=== PATIENT | male | born 1980 ===

== ENCOUNTER 2021-05-22 18:28 | Emergency (ER) | payer SELFPAY ==
[2021-05-22] MEDS ORDERED: Ketorolac 60 MG/2 ML SDV IM ONE (19:43)
--- NOTE | 2021-05-22 19:47 | EDM.PDOC ---
ED HPI GENERAL MEDICAL PROBLEM - General Chief Complaint: Back Pain or Injury Stated Complaint: RT SIDE RIBS Time Seen by Provider: 05/22/21 19:37 Source of Information: Reports: Patient History Limitations: Reports: No Limitations - History of Present Illness INITIAL COMMENTS - FREE TEXT/NARRATIVE: HISTORY AND PHYSICAL: History of present illness: Patient is a 40-year-old male who presents to the emergency department with complaints of left lateral chest wall pain which started yesterday. The patient states that on Wednesday he was wrestling with his friend when he hurt his ribs. He stated that they were feeling better until yesterday when he was twisted to the right side and sneezed, at that time he felt a pop and has had pain since then. He states the pain is getting worse to where he cannot take a deep breath. He took Motrin about 3 hours ago which did help the pain. Patient denies any fever, chills, headache, change in vision, syncope or near syncope. Denies any cough. Denies any abdominal pain, nausea, vomiting, diarrhea, constipation or dysuria. Has not noted any blood in urine or stool. Patient has been eating and drinking appropriately. Review of systems: As per history of present illness and below otherwise all systems reviewed and negative. Past medical history: As per history of present illness and as reviewed below otherwise noncontribu tory. Surgical history: As per history of present illness and as reviewed below otherwise noncontributory. Social history: See social history for further information Family history: As per history of present illness and as reviewed below otherwise noncontributory. Physical exam: General: Well developed and well nourished. Alert and orientated x 3. Nontoxic in appearance and in no acute distress. Vital signs are stable and have been reviewed by me. Nursing notes were reviewed. HEENT: Atraumatic, normocephalic, pupils equal and reactive bilaterally, negative for conjunctival pallor or scleral icterus, mucous membranes moist, TMs normal bilaterally, throat clear, neck supple, nontender, trachea midline. No drooling or trismus noted. No meningeal signs. No hot potato voice noted. Lungs: Clear to auscultation bilaterally. No wheezes, rales, or rhonchi. Chest nontender. Normal work of breathing, no accessory muscles used. Heart: S1S2, regular rate and rhythm without overt murmur, gallops, or rubs. No JVD. No peripheral edema Abdomen: Soft, nondistended, nontender. Normoactive bowel sounds. Negative for masses or costovertebral tenderness. Skin: Intact, warm, dry. No lesions or rashes noted. Hematologic: No petechiae or purpra. Mucosa appropriate color and normal nail bed color and refill. Extremities: Atraumatic, moves all extremities per self without difficulty or deficits, negative for cords or calf pain. Neurovascular unremarkable. Neuro: Awake, alert, oriented. Cranial nerves II through XII unremarkable. Cerebellum unremarkable. Motor and sensory unremarkable throughout. Exam nonfocal. Psychiatric: Mood and affect are appropriate. Normal thought process. Answering questions appropriately. Notes: *This patient was seen and evaluated during the 2019 SARS-CoV-2 novel coronavirus pandemic period. Community viral transmission is ongoing at time of this encounter and the emergency department is operating under pandemic response procedures. As stated above the patient is a 40-year-old male here for complaints of right lateral chest wall pain which started yesterday. The patient stated that Wednesday he injured his ribs in a wrestling match with his friend. He stated they were starting to feel better by yesterday when he turned towards his left and sneezed. At that time he heard a pop and started having some right lateral chest wall pain. The pain is increased with a deep breath to the point that he does not feel like he can take a deep breath. We will treat his pain with Toradol 60 mg IM and obtain a chest x-ray. Chest x-ray IMPRESSION: No sign of acute disease. Given the patient Norflex 60 mg IM. I have talked to the patient about the pain being muscular in nature. I have told the patient that he can continue with Motrin 600 mg every 6-8 hours and oral Norflex 100 mg p.o. twice a day for 5 days. If he continues to have pain after that he can follow- up with his primary care provider. The patient is agreeable with the plan I have talked with the patient about today's findings, in addition to providing specific details for plan of care. Reassessment at the time of disposition demonstrates that the patient is in no acute distress. The patient is stable for discharge, counseling was provided and we discussed in great detail signs and symptoms that would prompt them to return to the Emergency Department. Medication, follow up and supportive care measures were reviewed and discussed. Voices understanding and is agreeable to plan of care. Denies any further questions or concerns at this time. Diagnostics:CXR [employer]: Toradol 60 mg IM, Norflex 60 mg IM Prescription: Norflex 100 mg p.o. twice daily for 5 days Impression: Chest wall pain Plan: 1. You were evaluated today on an emergent basis. Your complaints of left-sided rib pain were evaluated with a chest x-ray which was negative for any acute changes. I will give you a shot of Norflex 60 mg, which is a muscle relaxer to assist with your pain control. I gave you Toradol 60 mg injection to assist with pain control. At home you can take Motrin 600mg 6 to 8 hours from the Toradol injection. Prescribed Norflex 100 mg p.o. twice a day for 5 days. It might take a couple days for the Norflex to work but it should take care of the pain. If not please return to the emergency department or follow-up with your primary care. 2. You can alternate Tylenol and ibuprofen as needed for pain and fever management. 3. We encourage you to follow up with your primary care provider and/or recommended specialist in the next few days for re-evaluation and further care/management. 4. If your symptoms should worsen, new symptoms develop or any of the signs and symptoms we discussed should arise please return to the emergency room or call 911 (if needed). Definitive disposition and diagnosis as appropriate pending reevaluation and review of above. Right Trunk Pain Score (Numeric/FACES): 7 - Related Data Allergies Allergy/AdvReac Type Severity Reaction Status Date / Time No Known Allergies Allergy Verified 05/22/21 19:30 Home Meds: Home Meds Orphenadrine [Norflex] 100 mg PO BID PRN 5 Days #10 tab 05/22/21 [Rx] Past Medical History HEENT History: Reports: None Cardiovascular History: Reports: Hypertension Respiratory History: Reports: None Gastrointestinal History: Reports: None Genitourinary History: Reports: None Musculoskeletal History: Reports: None Neurological History: Reports: None Psychiatric History: Reports: None Endocrine/Metabolic History: Reports: None Immunologic History: Reports: None Oncologic (Cancer) History: Reports: None Dermatologic History: Reports: None - Infectious Disease History Infectious Disease History: Reports: Chicken Pox - Past Surgical History Head Surgeries/Procedures: Reports: None Social & Family History - Family History Family Medical History: No Pertinent Family History - Caffeine Use Caffeine Use: Reports: Coffee - Recreational Drug Use Recreational Drug Type: Reports: Marijuana/Hashish ED ROS GENERAL - Review of Systems Review Of Systems: Comprehensive ROS is negative, except as noted in HPI. ED EXAM, GENERAL - Physical Exam Exam: See Below (See dictation) Course - Vital Signs Last Recorded V/S: Last Vital Signs Temp 97.2 F 05/22/21 19:30 Pulse 72 05/22/21 20:45 Resp 16 05/22/21 20:45 BP 127/90 05/22/21 20:45 Pulse Ox 96 05/22/21 20:45 - Orders/Labs/Meds Meds: Medications Discontinued Medications Generic Name Dose Route Start Last Admin Trade Name Freq PRN Reason Stop Dose Admin Ketorolac Tromethamine 60 mg 05/22/21 19:43 05/22/21 20:06 Ketorolac 60 Mg/2 Ml Sdv IM 05/22/21 19:44 60 mg ONETIME ONE Administration Orphenadrine Citrate 60 mg 05/22/21 20:24 05/22/21 20:31 Orphenadrine 60 Mg/2 Ml Inj IM 05/22/21 20:25 60 mg ONETIME ONE Administration Departure - Departure Time of Disposition: 20:25 Disposition: Home, Self-Care 01 Condition: Good Clinical Impression: Chest wall pain - Discharge Information *PRESCRIPTION DRUG MONITORING PROGRAM REVIEWED*: Not Applicable *COPY OF PRESCRIPTION DRUG MONITORING REPORT IN PATIENT PACO: Not Applicable Prescriptions: Orphenadrine [Norflex] 100 mg PO BID PRN 5 Days #10 tab PRN Reason: Muscle Spasm - Painful Instructions: Muscle Strain, [id number] Referrals: Kandy Hines PA [Primary Care Provider] - Forms: ED Department Discharge Additional Instructions: The following information is given to patients seen in the emergency department who are being discharged to home. This information is to outline your options for follow-up care. We provide all patients seen in our emergency department with a follow-up referral. The need for follow-up, as well as the timing and circumstances, are variable depending upon the specifics of your emergency department visit. If you don't have a primary care physician on staff, we will provide you with a referral. We always advise you to contact your personal physician following an emergency department visit to inform them of the circumstance of the visit and for follow-up with them and/or the need for any referrals to a consulting specialist. The emergency department will also refer you to a specialist when appropriate. This referral assures that you have the opportunity for follow-up care with a specialist. All of these measure are taken in an effort to provide you with optimal care, which includes your follow-up. Under all circumstances we always encourage you to contact your private physician who remains a resource for coordinating your care. When calling for follow-up care, please make the office aware that this follow-up is from your recent emergency room visit. If for any reason you are refused follow-up, please contact the [facility] Emergency Department at and asked to speak to the emergency department charge nurse. [facility] [address] [place] [id number] [place] [address] Plan: 1. You were evaluated today on an emergent basis. Your complaints of left-sided rib pain were evaluated with a chest x-ray which was negative for any acute changes. I will give you a shot of Norflex 60 mg, which is a muscle relaxer to assist with your pain control. I gave you Toradol 60 mg injection to assist with pain control. At home you can take Motrin 600mg 6 to 8 hours from the Toradol injection. Prescribed Norflex 100 mg p.o. twice a day for 5 days. It might take a couple days for the Norflex to work but it should take care of the pain. If not please return to the emergency department or follow-up with your primary care. 2. You can alternate Tylenol and ibuprofen as needed for pain and fever management. 3. We encourage you to follow up with your primary care provider and/or recommended specialist in the next few days for re-evaluation and further care/management. 4. If your symptoms should worsen, new symptoms develop or any of the signs and symptoms we discussed should arise please return to the emergency room or call 911 (if needed). Sepsis Event Note (ED) - Evaluation Sepsis Screening Result: No Definite Risk
--- NOTE | 2021-05-22 20:17 | CR ---
INDICATION: Right lateral chest wall pain TECHNIQUE: Chest 2 views. COMPARISON: None FINDINGS: Cardiovascular and mediastinum: Heart size and vasculature are normal in caliber and appearance. Mediastinum is within normal limits. Lungs and pleural spaces: Lungs are clear. No sign of infiltrate or mass. No sign of pleural effusion. No pneumothorax. Bones and soft tissues: No significant findings. IMPRESSION: No sign of acute disease. Dictated by Nia Ty MD @ 05/22/2021 8:15:[address] Nia Ty @ May 22 2021 8:15PM
[2021-05-22] MEDS ORDERED: Orphenadrine 60 MG/2 ML Inj IM ONE (20:24)
== END 2021-05-22 20:56 | disposition home or self-care (01) ==
LOC: MW.ED 18:28
DX: R07.89 Other chest pain (principal); R07.81 Pleurodynia; I10 Essential (primary) hypertension
CPT/HCPCS: 71046; 96372; 99284; J1885; J2360; 99283